=== PATIENT | female | born 1995 | race Caucasian/White ===

== ENCOUNTER 2018-12-08 11:50 | Emergency (ER) | payer OTHER ==
[~2018-12-08] VITALS: Ht 160 cm; Wt 76.2 kg
[2018-12-08 12:02] VITALS: BP 121/76
[2018-12-08] MEDS ORDERED: KETOROLAC 30 MG/ML VIAL IM ONE (12:35)
[2018-12-08 13:26] VITALS: BP 121/76
== END 2018-12-08 13:26 | disposition home or self-care (01) ==
LOC: MED 11:50
DX: M54.5 Low back pain (principal)
CPT/HCPCS: 81002; 81025; 96372; 99283; J1885